=== PATIENT | female | born 1965 | race Caucasian/White ===

== ENCOUNTER 2017-03-08 23:16 | Emergency (ER) | payer OTHER ==
[~2017-03-08] VITALS: Ht 170.2 cm; Wt 66.9 kg
[~2017-03-08 23:16] MED LIST: ALPR-475 PO; FLUO40CA9 PO; SERT50TA PO
[2017-03-09] MEDS ORDERED: METOCLOPRAMIDE 5 MG/ML, 2ML IVPush ONE
[2017-03-09] MEDS ORDERED: DIPHENHYDRAMINE 50 MG/ML, 1ML IVPush ONE
[2017-03-09] MEDS ORDERED: KETOROLAC 30 MG/1 ML IVPush ONE
[2017-03-09] MEDS ORDERED: SODIUM CHLORIDE 0.9% 1,000ML IVBOLUS ONE
[2017-03-09] MEDS ORDERED: DIPHENHYDRAMINE 50 MG/ML, 1ML ONE (00:12)
[2017-03-09] MEDS ORDERED: KETOROLAC 30 MG/1 ML ONE (00:12)
[2017-03-09] MEDS ORDERED: METOCLOPRAMIDE 5 MG/ML, 2ML ONE (00:12)
[2017-03-09 00:34] LABS: ASPARTATE AMINO TRANSFERASE 17 U/L (15-37); BLOOD UREA NITROGEN 14 mg/dL (7-18)
[2017-03-09 01:07] VITALS: BP 114/65
== END 2017-03-09 02:06 | disposition home or self-care (01) ==
LOC: ED 23:59
DX: G43.019 Migraine without aura, intractable, without status migrainosus (principal); Z90.89 Acquired absence of other organs
CPT/HCPCS: 36415; 80053; 85025; 96361; 96374; 96375; 99284; J1200; J1885; J2765; J7030